=== PATIENT | female | born 1950 | race Caucasian/White ===

== ENCOUNTER 2016-08-07 14:37 | Emergency (ER) | payer MEDICARE ==
[~2016-08-07] VITALS: Ht 175.3 cm; Wt 75.0 kg
[2016-08-07 14:44] VITALS: BP 196/100; TEMP 98.5
[2016-08-07] MEDS ORDERED: COZAAR 50MG50 MG/TAB PO (15:26)
[2016-08-07] MEDS ORDERED: LOPRESSOR 225 MG/TAB PO (15:26)
[2016-08-07] MEDS ORDERED: LIPITOR 80MG80 MG PO (15:27)
[2016-08-07] MEDS ORDERED: ELMIRON 10100 MG/CA1 PO (15:27)
[2016-08-07] MEDS ORDERED: TOPAMAX 100MG100 M1 PO (15:27)
[2016-08-07] MEDS ORDERED: SYNTHROID0.088 MG/T PO (15:27)
[2016-08-07] MEDS ORDERED: EFFEXOR-XR150 MG PO (15:28)
[2016-08-07] MEDS ORDERED: ASPIRIN 81M81 MG/TA2 PO (15:28)
[2016-08-07] MEDS ORDERED: DAZIDOX10 MG PO (15:29)
[2016-08-07 16:36] VITALS: PULSE 61
== END 2016-08-07 16:41 | disposition home or self-care (01) ==
LOC: COL.ER 14:37
DX: M25.532 Pain in left wrist (principal); S42.302D Unspecified fracture of shaft of humerus, left arm, subsequent encounter for fracture with routine healing; W19.XXXD Unspecified fall, subsequent encounter; I10 Essential (primary) hypertension